=== PATIENT | female | born 1980 | race Two or more races ===

== ENCOUNTER → 2024-06-16 | Outpatient (CLI) | payer MEDICAID, SELFPAY ==
--- NOTE | 2024-06-16 09:08 | XR_ITS ---
Examination: Bilateral wrists 6 views TECHNIQUE: AP oblique lateral each wrist total 6 views Exam date and time: 04/18/2024 0944 hours INDICATIONS: Bilateral wrist pain 7 years. FINDINGS: Mild osteopenia Bilateral mild narrowing radiocarpal joints No erosive or other significant arthritic change No fractures IMPRESSION: Mild bilateral narrowing radiocarpal joints
--- NOTE | 2024-06-16 09:08 | XR_ITS ---
Examination: Bilateral hands, 6 views. Technique: AP, Oblique, Lateral each hand total 6 views Date and time of exam: June 16, 2024 0938 hours INDICATIONS: Bilateral hand and wrist pain 6 years Findings: Mild osteopenia No fracture or dislocation involving either hand Bilateral mild narrowing radiocarpal joints No erosive or other significant arthritic change IMPRESSION: Mild bilateral narrowing radiocarpal joints No erosive or other significant arthritic change involving either hand
== END | disposition home or self-care (01) ==
PROVIDERS: PCP Nurse Practitioner Family
DX: M25.842 Other specified joint disorders, left hand (principal); M25.841 Other specified joint disorders, right hand; M25.832 Other specified joint disorders, left wrist; M25.831 Other specified joint disorders, right wrist
CPT/HCPCS: 73110; 73130